=== PATIENT | male | born 1950 | race Hispanic/Latino ===

== ENCOUNTER → 2025-01-30 | Day surgery (SDC) | payer MEDICARE ==
[~2025-01-30] MED LIST: ACETAMINOPHEN 1000 MG/100 ML IV PRN; ASPIRIN 325 MG TAB PO SCH; ASPIRIN81 MG PO; CELECOXIB 100 MG CAP PO SCH; DEXAMETHASONE SOD PHOS INJ 4 MG/ML SDV ONE; DIPHENHYDRAMINE HCL INJ 50 MG/ML VIAL IV PRN; DOCUSATE SODIUM 100 MG CAP PO PRN; EPHEDRINE SULFATE INJ 50 MG/ML VIAL ONE; FENTANYL CITRATE/PF 100MCG/2 ML INJ ONE; HYDROCODONE/APAP 5MG-325MG TAB PO PRN; HYDROCODONE/APAP 7.5MG-325MG 1 EA TAB PO PRN; LEVOTHYROXINE50 MCG PO; LIDOCAINE HCL 2% LOCAL INJ 5 ML SDV VIAL INJ ONE; MIDAZOLAM HCL 2 MG/2 ML VIAL ONE; OMEGA 3 FISH O1 EACH PO; ONDANSETRON HCL INJ 2MG/ML 2ML 2 MG/ML VIAL IV PRN; ONDANSETRON HCL INJ 2MG/ML 2ML 2 MG/ML VIAL ONE; PROPOFOL IV EMULSION 10 MG/ML 20 ML VIAL ONE; ROPIVACAINE/EPI/CLONIDINE/KET 50 ML SYRINGE INJ ONE; SODIUM CHLORIDE 0.9% 1000ML 1,000 ML IV SCH
[2025-01-30] MEDS: CEFAZOLIN SODIUM 2 GM ONE (06:11)
[2025-01-30] MEDS: CELECOXIB 200 MG CAP ONE (06:12)
[2025-01-30] MEDS: LACTATED RINGER'S 1,000 ML ONE (06:13)
[2025-01-30] MEDS: GABAPENTIN 300 MG CAP ONE (06:13)
[2025-01-30] MEDS: DEXAMETHASONE SOD PHOS 10 MG/1 ML VIAL ONE (06:13)
[2025-01-30 06:42] LABS: BASOPHILS % 0.8 % (0.0-1.0); EOSINOPHILS % 8.6 % (0.0-6.0); LYMPHOCYTES % 43.2 % (18.0-39.1); MONOCYTES % 13.0 % (4.4-11.3); NEUTROPHILS % 34.3 % (38.7-80.0); RED CELL DISTRIBUTION WIDTH 14.3 % (11.7-14.4)
[2025-01-30 08:42] VITALS: TEMP 97.5
[2025-01-30] MEDS: FENTANYL CITRATE/PF 100MCG/2 ML INJ ONE (09:37)
[2025-01-30 11:45] VITALS: BP 110/78; PULSE 75; RESP 16; O2SAT 96
[2025-01-30] MEDS: HYDROCODONE/APAP 7.5MG-325MG 1 EA TAB ONE (11:58)
== END | disposition home health service (06) ==
LOC: OR 05:46
PROVIDERS: ATTEND Specialist
DX: M17.11 Unilateral primary osteoarthritis, right knee (principal); M25.761 Osteophyte, right knee; J45.909 Unspecified asthma, uncomplicated; E03.9 Hypothyroidism, unspecified; E66.9 Obesity, unspecified; Z01.810 Encounter for preprocedural cardiovascular examination; Z01.818 Encounter for other preprocedural examination; Z79.82 Long term (current) use of aspirin; Z79.899 Other long term (current) drug therapy; Z86.73 Personal history of transient ischemic attack (TIA), and cerebral infarction without residual deficits
CPT/HCPCS: 27447; 36415; 71046; 73560; 85025; 86850; 86900; 93005; 97110; 97116; 97161; C1713 ×2; C1776; J1100 ×2; J2003; J2250; J2405; J2704; J3010; J7121